=== PATIENT | male | born 1930 | race Caucasian/White ===

== ENCOUNTER → 2016-05-24 | Outpatient (CLI) | payer MEDICARE ==
--- OUTSIDE RECORDS SUMMARY | 2016-05-24 12:22 | XMS REPORT | Continuity of Care Document ---
Author Author [facility] Organization [facility] Address Unknown Phone Unavailable Care Team Providers Care Casting Machine Set Up Operator Name Role Phone NO, LOCAL PHYSICIAN PCP Unavailable Insurance Providers Payer Name Policy Number Subscriber Name Relationship [employer] [id number] Fabian Oconnor 20 Self / Same As Patient [employer] [facility] Supp [id number] Vj Oconnor 18 Self / Same As Patient Problems No problem information available. Medications No medication information available. Social History No social history. Hospital Discharge Instructions No hospital discharge instructions. Plan of Care Discharge Date 11/11/15 6:15am Prescriptions See Medication Section Functional Status No functional status results. Allergies, Adverse Reactions, Alerts No allergy information available. Immunizations No immunization records. Vital Signs No known vital signs results. Results No known relevant diagnostic tests, laboratory data and/or discharge summary. Procedures No known history of procedures. Encounters Encounter Location Arrival/Admit Date Discharge/Depart Date Attending Provider Departed Clinic [facility] 11/10/15 7:44pm 11/11/15 6: 15am BOBBI MONTEZ APRN
--- NOTE | 2016-05-24 12:46 | Diagnostic Imaging Report ---
EXAMINATION: KUB. INDICATION: Left-sided abdominal pain. FINDINGS: There is a 1.6 cm calcification in the right flank, probably an upper pole right kidney stone. No definite left kidney stones. There is a moderate amount of fecal material seen in the colon without bowel dilatation. IMPRESSION: A 1.6 cm calcification in the right flank, probably a kidney stone. Dictated by: Dictated on workstation # [id number]
== END ==
LOC: RAD 12:19
PROVIDERS: ATTEND Urology
DX: N20.0 Calculus of kidney (principal)
CPT/HCPCS: 74000